=== PATIENT | female | born 1970 | race Caucasian/White ===

== ENCOUNTER 2017-05-16 15:05 | Emergency (ER) | payer OTHER ==
[~2017-05-16] VITALS: Ht 165.1 cm; Wt 88.5 kg
[~2017-05-16 15:05] MED LIST: B12 5,000 MCG1 EACH; CHANTIX1 MG BC; LORTAB 7.5-5001 TAB PO; MULTI-DAY1 TAB PO; SYNTHROID25 MCG PO; VALTREX PO; ZANTAC PO
[2017-05-20 07:27] LABS: CHLAMYDIA TRACH Not Detected (Not Detected); N GONOR Detected (Not Detected)
== END 2017-05-16 16:53 | disposition home or self-care (01) ==
LOC: CED 15:05 → CFTX 15:05 → CED 16:29 → CFTX 16:29
PROVIDERS: Physician Assistant
DX: Z20.2 Contact with and (suspected) exposure to infections with a predominantly sexual mode of transmission (principal); E07.9 Disorder of thyroid, unspecified; F17.200 Nicotine dependence, unspecified, uncomplicated; Z90.49 Acquired absence of other specified parts of digestive tract; Z88.0 Allergy status to penicillin
CPT/HCPCS: 87220; 87491; 87591; 87808; 87905; 96372; 99283; J0696